=== PATIENT | female | born 1990 | race Caucasian/White ===

== ENCOUNTER → 2016-03-04 | Outpatient (CLI) | payer BC ==
--- NOTE | 2016-03-04 11:26 | REP ---
OBSTETRIC SONOGRAPHY: HISTORY: Supervision of for anatomy. FINDINGS: Scanning through the gravid uterus demonstrates a viable single intrauterine gestation in a cephalic lie. motion is observed and heart rate is recorder 153 beats per minute. Closed cervical length is 3.5 cm measured transabdominally. Amniotic fluid is subjectively normal. A posterior grade 0 placenta is seen without evidence of previa or abruption. No extrauterine abnormality is observed. The umbilical cord is seen draping across the shoulders. The following anatomic structures are identified and felt to be unremarkable: cranium, choroid plexus, cavum, cerebellum and posterior fossa, lungs, diaphragm, left-sided stomach, abdominal wall cord insertion, three-vessel umbilical cord, kidneys and bladder, spine, upper and lower extremities. Face and profile and four-chamber heart and outflow tract views are less than optimally seen due to position. An echogenic focus is seen in the left ventricle. BIOMETRY CHART: BPD 5.1 cm = 21 weeks 3 days HC 18.0 cm = 20 weeks 3 days AC 16.0 cm = 21 weeks 1 day FL 3.6 cm = 21 weeks 2 days HL 3.3 cm = 21 weeks 2 days HC/AC ratio normal 1.1 Cephalic index normal 0.8. Estimated weight 402 grams, 0 pounds 14 ounces, 47th percentile for 21 weeks 1 day. IMPRESSION: Viable single intrauterine gestation at 21 weeks 1 day by today's composite sonographic criteria. DESTINEE by today's sonography July 14, 2016. Face and profile, heart and outflow tract views less than optimally seen due to position. There is an echogenic focus in the left ventricle. Signed by Jef Mcdonald MD 03/04/2016 01:36 P
== END ==
LOC: M RAD 09:32
PROVIDERS: ATTEND Advanced Practice Midwife
DX: Z36 Encounter for antenatal screening of mother (principal)

== ENCOUNTER → 2016-03-19 | Outpatient (CLI) | payer BC ==
--- NOTE | 2016-03-20 06:27 | REP ---
Clinical: Anatomical evaluation. Comparison: 03/04/2016 . Findings: Examination demonstrates a single live intrauterine in breech presentation. motion is identified by technologist. Placenta is noted posterior fundally and grade zero without evidence for placenta previa or abruption. Amniotic fluid volume is normal. Cervix measures 3.3 cm in length and appears closed. No evidence for nuchal cord. Gestational age by first ultrasound 23 weeks 2 days with DESTINEE 07/14/2016 . Gestational age by current measurements 23 weeks 3 days with DESTINEE 07/13/2016 . FHR equals 153 beats per minute. Estimated weight 620 grams ( 58th percentile). Anatomical assessment demonstrates normal structures including cranium, choroid plexus, cavum, cerebellum/posterior fossa, facial features, lungs, four-chamber heart/ventricular outflow tracts, diaphragm, stomach, cord insertion/three-vessel cord, kidneys/bladder, spine, and extremities. Echogenic focus in the left cardiac ventricle suggesting prominent chordae tendineae is again identified and unchanged. Mild renal pelviectasis noted measuring up to 2.2 mm is within normal range for age. Impression: Single live intrauterine in breech presentation demonstrating appropriate interval growth. Mild renal pelviectasis within normal range. Prominent chordae tendineae. In conjunction with prior examination anatomical assessment is relatively complete and normal. Signed by Herb Wood MD 03/20/2016 06:19 A
== END ==
LOC: M RAD 12:25
PROVIDERS: ATTEND Obstetrics & Gynecology
DX: Z36 Encounter for antenatal screening of mother (principal)

== ENCOUNTER → 2016-04-10 | Outpatient (CLI) | payer BC ==
[2016-04-10 13:01] LABS: MEAN CORPUSCULAR HEMOGLOBIN 32.6 pg (27.0-33.0); RED CELL DISTRIBUTION WIDTH 12.8 % (11.5-14.5); WHITE BLOOD COUNT 13.3 K/mm3 (4.0-10.0)
== END ==
LOC: M SMT 09:53
PROVIDERS: ATTEND Obstetrics & Gynecology
DX: Z34.82 Encounter for supervision of other normal pregnancy, second trimester (principal)

== ENCOUNTER → 2016-06-20 | Outpatient (REF) | payer BC | LOC: M LAB REF 13:00 | PROVIDERS: ATTEND Advanced Practice Midwife | DX: Z34.83 Encounter for supervision of other normal pregnancy, third trimester (principal) ==

== ENCOUNTER 2016-07-18 08:20 | Inpatient (IN) | payer BC ==
[~2016-07-18] VITALS: Ht 170.2 cm; Wt 90.0 kg
[2016-07-18] VITALS (18 sets, daily range): BP systolic 111–135; BP diastolic 60–78
[2016-07-18] MEDS ORDERED: PRENTAB9 PO (08:29)
[2016-07-18] MEDS ORDERED: PENICILLIN G POTASSIUM IV 5 MU in D5W MINI-BAG PLUS 100 ML IV STA (09:07)
[2016-07-18 10:12] LABS: MEAN CORPUSCULAR HEMOGLOBIN 31.2 pg (27.0-33.0); MEAN CORPUSCULAR HGB CONC 34.1 g/dl (32.0-36.5); MEAN CORPUSCULAR VOLUME 91.8 fl (80.0-96.0); RED CELL DISTRIBUTION WIDTH 12.8 % (11.5-14.5); WHITE BLOOD COUNT 14.2 K/mm3 (4.0-10.0)
[2016-07-18] MEDS ORDERED: TUMS500C PO (10:58)
[2016-07-18] MEDS ORDERED: FENTANYL 2MCG/ML ROPIVACAINE 0.2% IN 0.9% NACL 200ML IVBAG As Ordered ONE (11:03)
[2016-07-18] MEDS ORDERED: NALOXONE INJ 0.4 MG/1 ML VIAL (J2310) IV PRN (12:30)
[2016-07-18] MEDS ORDERED: EPIDURAL COMMENT XX SCH (12:30)
[2016-07-18] MEDS ORDERED: LACTATED RINGER'S 1000 ML IV PRN (12:30)
[2016-07-18] MEDS ORDERED: diphenhydrAMINE INJ 50MG/ML VIAL (J1200) IV PRN (12:30)
[2016-07-18] MEDS ORDERED: ONDANSETRON 4MG/2ML VIAL (J2405) IV PRN (12:30)
[2016-07-18] MEDS ORDERED: EPIDURAL/PCA KEYS XX PRN (12:30)
[2016-07-18] MEDS ORDERED: FENTANYL/ROPIVACAINE/NACL BAG 200 ML EPIDURAL SCH (12:30)
[2016-07-18] MEDS ORDERED: REFRIGERATOR IV KEYS XX PRN (12:30)
--- NOTE | 2016-07-18 13:39 | HPE ---
DATE OF ADMISSION: 07/18/2016 HISTORY: 26-year-old 1, para 0 female at 40-1/7 weeks gestation by 7 week ultrasound, estimated date of confinement (EDC) of 07/17/2016, presents for regular contractions every 3-4 minutes for the last several hours. A small amount of vaginal bleeding. Contractions increased intensity. COURSE: The patient initiated care at 14 weeks gestation. Her blood pressure is 110/68, weight 149 pounds. course was unremarkable. MEDICAL HISTORY: Mild asthma. SURGICAL HISTORY: Knee surgery. ALLERGIES: 1. SULFA. SOCIAL HISTORY: The patient is . She denies, cigarettes, alcohol or drug use. FAMILY HISTORY: Noncontributory. PHYSICAL EXAMINATION: Blood pressure 128/78. She appears uncomfortable. Head and neck exam normal. Lungs clear. Heart regular rate and rhythm. Abdomen nontender and gravid. heart tone category 1. Contractions every 3-4 minutes. Sterile vaginal exam 3 cm, 100% effaced, -2 station, vertex intact. Extremities nontender. LABORATORIES: Blood type is O negative. Rubella immune. RPR nonreactive. Hepatitis B and C negative. Diabetes screen 81. Group B Streptococcus (GBS) positive on 06/20/2016. ASSESSMENT: 26-year-old G1 at 40-1/7 weeks gestation who presents in early labor. Patient was admitted on 07/18/2016. Patient will receive antibiotics for GBS prophylaxis.
[2016-07-18] MEDS: PENICILLIN G POTASSIUM IV 2.5 MU in D5W 100 ML IV SCH ×3 (13:44→21:45)
[2016-07-18] MEDS ORDERED: OXYTOCIN DRIP 30 UNITS in APPROPRIATE DILUENT 1 EA IV SCH (16:00)
[2016-07-18] MEDS: ePHEDrine SULFATE 25 MG/5 ML(5MG/ML) SYRINGE IV PRN ×3 (17:08→17:32)
[2016-07-18] MEDS ORDERED: RHOGAM 300 MCG (1500 IU) INJ (J2790) IM SCH (23:00)
[2016-07-18] MEDS ORDERED: MEASLES,MUMPS,RUBELLA VACCINE INJ (MMR-II) (90707) SC SCH (23:00)
[2016-07-18] MEDS ORDERED: OXYTOCIN DRIP 30 UNITS in APPROPRIATE DILUENT 1 EA IV ONE (23:00)
[2016-07-18] MEDS ORDERED: METHYLERGONOVINE MALEATE 0.2 MG TAB PO PRN (23:00)
[2016-07-18] MEDS ORDERED: ACETAMINOPHEN 500 MG TAB PO PRN (23:00)
[2016-07-18] MEDS ORDERED: DIBUCAINE 1% OINTMENT 30GM TOP PRN (23:00)
[2016-07-18] MEDS: IBUPROFEN 800 MG TAB PO PRN (23:39)
[2016-07-19 01:16] VITALS: BP 124/71
--- NOTE | 2016-07-19 02:09 | DN ---
DATE OF DELIVERY: 07/18/2016 PREDELIVERY DIAGNOSIS: 40 weeks gestation in labor. POSTDELIVERY DIAGNOSIS: Delivered. PROCEDURE: Spontaneous vaginal delivery. DITCH TENDER: Kaushik Lopez MD. ANESTHESIA: Epidural. ESTIMATED BLOOD LOSS: 300 mL. FINDINGS: 8 pound 12 ounce male infant, scores 8 and 9. DELIVERY SUMMARY: After a 30-minute second stage, the patient spontaneously delivered an 8 pound 12 ounce male infant, scores 8 and 9, under epidural anesthesia. There was no nuchal cord. The shoulders delivered with ease. The cried spontaneously and was handed to the mother. The cord was doubly clamped and cut. The placenta delivered spontaneously and appeared to be intact. A third-degree perineal laceration was repaired with 2-0 chromic in the usual fashion. Rectal exam was normal at the end of the procedure. There was no evidence of rectal involvement. Sponge, needle counts were correct. The patient received intravenous (IV) Pitocin after delivery of placenta.
[2016-07-19 06:02] VITALS: BP 129/74
[2016-07-19] MEDS: DOCUSATE SODIUM 100 MG CAP PO SCH ×2 (07:53→20:17)
[2016-07-19] MEDS: PRENATAL VITAMIN TAB PO SCH (07:55)
[2016-07-19] MEDS: IBUPROFEN 800 MG TAB PO PRN (14:41)
[2016-07-19 18:27] VITALS: BP 117/56
[2016-07-20 05:25] VITALS: BP 124/67
[2016-07-20] MEDS: DOCUSATE SODIUM 100 MG CAP PO SCH (08:43)
[2016-07-20] MEDS: PRENATAL VITAMIN TAB PO SCH (08:43)
[2016-07-20] MEDS ORDERED: IBUP-1114 PO (10:24)
[2016-07-20] MEDS ORDERED: COLA100C3 PO (10:24)
[2016-07-20] MEDS ORDERED: ACET50TA PO (10:24)
[2016-07-20] MEDS ORDERED: PRENTAB9 PO (10:24)
== END 2016-07-20 10:45 | disposition home or self-care (01) | DRG 542 ==
LOC: M LDO 08:20 → M LDI 09:06 → M OBS 07-19 01:12
PROVIDERS: ADMIT Specialist; ATTEND Specialist
PROC: 10E0XZZ Delivery of Products of Conception, External Approach (ICD-10-PCS; principal; 2016-07-18)
PROC: 0DQR0ZZ Repair Anal Sphincter, Open Approach (ICD-10-PCS; 2016-07-18)
DX: O48.0 Post-term pregnancy (principal); O70.20 Third degree perineal laceration during delivery, unspecified; Z37.0 Single live birth; Z3A.40 40 weeks gestation of pregnancy; Z88.2 Allergy status to sulfonamides

== ENCOUNTER → 2016-12-30 | Outpatient (REF) | payer BC ==
[~2016-12-30] MED LIST: ACET50TA PO; COLA100C5 PO; IBUP-1114 PO; PRENTAB9 PO; TUMS500C PO
== END ==
LOC: M SFHCPLAZ 13:43
PROVIDERS: ATTEND Family Medicine
DX: F53 Mental and behavioral disorders associated with the puerperium, not elsewhere classified (principal)

== ENCOUNTER → 2017-06-19 | Outpatient (REF) | payer BC ==
[2017-06-20 12:37] LABS: APPEARANCE, URINE HAZY (CLEAR); BACTERIA, URINE AUTO NEGATIVE (NEGATIVE); BILIRUBIN, URINE AUTO NEGATIVE (NEGATIVE); BLOOD, URINE BLOOD NEGATIVE (NEGATIVE); COLOR, URINE YELLOW (YELLOW); GLUCOSE, URINE (UA) AUTO NEGATIVE (NEGATIVE); KETONE, URINE AUTO NEGATIVE (NEGATIVE); LEUKOCYTE ESTERASE, URINE AUTO 1+ (NEGATIVE); MUCUS, URINE SMALL (NEGATIVE); NITRITE, URINE AUTO NEGATIVE (NEGATIVE); PROTEIN, URINE AUTO NEGATIVE (NEGATIVE); RBC, URINE AUTO 0 /HPF (0-3); SPECIFIC GRAVITY URINE AUTO 1.013 (1.002-1.035); SQUAMOUS EPITHELIAL CELL UR AU 3 /HPF (0-6); UROBILINOGEN, URINE AUTO 0.2 mg/dL (0.0-2.0); WBC, URINE AUTO 2 /HPF (0-3)
== END ==
LOC: M SFHCPLAZ 11:39
DX: R35.0 Frequency of micturition (principal)
CPT/HCPCS: 81001

== ENCOUNTER → 2017-07-30 | Outpatient (REF) | payer BC | LOC: M LAB REF 13:11 | DX: Z12.4 Encounter for screening for malignant neoplasm of cervix (principal) | CPT/HCPCS: G0123 ==

== ENCOUNTER → 2017-09-25 | Outpatient (CLI) | payer BC ==
[2017-09-25 13:51] LABS: BASO % 0.3 % (0.0-1.0); EOS # 0.2 10^3/uL (0.0-0.50); EOS % 1.8 % (0.0-3.0); HEMATOCRIT 38.6 % (36.0-47.0); HEMOGLOBIN 13.1 g/dl (12.0-15.5); IMMATURE GRANULOCYTE % 0.4 % (0-3.0); LYMPH # 1.5 10^3/uL (1.5-6.5); LYMPH % 17.2 % (24.0-44.0); MEAN CORPUSCULAR HEMOGLOBIN 31.4 pg (27.0-33.0); MEAN CORPUSCULAR HGB CONC 33.9 g/dl (32.0-36.5); MEAN CORPUSCULAR VOLUME 92.6 fl (80.0-96.0); MONO # 0.5 10^3/uL (0.0-0.8); MONO % 5.3 % (0.0-5.0); NEUTROPHILS # 6.7 10^3/uL (1.8-7.7); PLATELET COUNT, AUTOMATED 271 10^3/uL (150-450); RED BLOOD COUNT 4.17 10^6/uL (4.00-5.40); RED CELL DISTRIBUTION WIDTH 12.9 % (11.5-14.5); WHITE BLOOD COUNT 8.9 10^3/uL (4.0-10.0)
[2017-09-25 14:47] LABS: FREE T4 1.24 NG/DL (0.76-1.46); THYROID STIMULATING HORMONE 0.637 uIU/ML (0.358-3.740)
[2017-09-25 16:03] LABS: CHLAMYDIA DNA AMPLIFICATION NEGATIVE (NEGATIVE); GC DNA AMPLIFICATION NEGATIVE (NEGATIVE)
[2017-09-26 10:24] LABS: RUBELLA IgG QUALITATIVE IMMUNE (IMMUNE)
[2017-09-26 10:42] LABS: HBsAg Prenatal NEGATIVE (NEGATIVE)
[2017-09-26 10:55] LABS: HEPATITIS C VIRUS ABY INDEX 0.1 INDEX (<0.8)
[2017-09-26 10:56] LABS: HIV 1&2 SCREEN CENTAUR NEGATIVE (NEGATIVE)
== END ==
LOC: M SMT 09:21
DX: Z34.81 Encounter for supervision of other normal pregnancy, first trimester (principal); Z3A.09 9 weeks gestation of pregnancy
CPT/HCPCS: 84443

== ENCOUNTER → 2017-11-24 | Outpatient (CLI) | payer BC | LOC: M RAD 15:30 | DX: Z34.82 Encounter for supervision of other normal pregnancy, second trimester (principal); Z36.89 Encounter for other specified antenatal screening; Z3A.18 18 weeks gestation of pregnancy | CPT/HCPCS: 76811 ==

== ENCOUNTER → 2017-12-19 | Outpatient (CLI) | payer BC | LOC: M RAD 10:10 | DX: Z34.82 Encounter for supervision of other normal pregnancy, second trimester (principal); Z36.89 Encounter for other specified antenatal screening; Z3A.22 22 weeks gestation of pregnancy | CPT/HCPCS: 76816 ==

== ENCOUNTER → 2018-01-27 | Outpatient (CLI) | payer BC ==
[~2018-01-27] MED LIST changes: -ACET50TA PO; +MAPA500T17 PO
[2018-01-27 14:11] LABS: BASO % 0.2 % (0.0-1.0); EOS # 0.4 10^3/uL (0.0-0.50); EOS % 2.9 % (0.0-3.0); HEMATOCRIT 32.1 % (36.0-47.0); HEMOGLOBIN 10.6 g/dl (12.0-15.5); LYMPH # 1.5 10^3/uL (1.5-6.5); LYMPH % 12.2 % (24.0-44.0); MEAN CORPUSCULAR HEMOGLOBIN 31.3 pg (27.0-33.0); MEAN CORPUSCULAR VOLUME 94.7 fl (80.0-96.0); MONO # 0.6 10^3/uL (0.0-0.8); MONO % 5.1 % (0.0-5.0); NEUTROPHILS # 9.7 10^3/uL (1.8-7.7); NEUTROPHILS % 78.9 % (36.0-66.0); PLATELET COUNT, AUTOMATED 264 10^3/uL (150-450); RED BLOOD COUNT 3.39 10^6/uL (4.00-5.40); WHITE BLOOD COUNT 12.2 10^3/uL (4.0-10.0)
== END ==
LOC: M SMT 08:58
PROVIDERS: ATTEND Advanced Practice Midwife
DX: Z34.82 Encounter for supervision of other normal pregnancy, second trimester (principal); Z36.89 Encounter for other specified antenatal screening
CPT/HCPCS: 36415; 82950; 85025; 86850; 86900; 86901; J2790

== ENCOUNTER → 2018-03-16 | Outpatient (CLI) | payer BC ==
[~2018-03-16] MED LIST changes: -MAPA500T17 PO; +MAPA500T2 PO
--- NOTE | 2018-03-16 15:16 | REP ---
Clinical: Anatomical evaluation. Comparison: 12/19/2017 . Findings: Examination demonstrates a single live intrauterine in breech presentation. motion is identified by technologist. Placenta is noted fundal and grade grade II without evidence for placenta previa or abruption. Amniotic fluid volume is normal. Cervix measures 3.4 cm in length and appears closed. No evidence for nuchal cord. Gestational age by LMP 34 weeks 0 days with DESTINEE 04/27/2018 . Gestational age by current measurements 34 weeks 2 days with DESTINEE 04/25/2018 . FHR equals 163 beats per minute. Estimated weight 2419 grams ( 53rd percentile). Amniotic fluid index: 18.3 cm (8.1 - 24.8) Umbilical cord SD ratio: 2.81 (2.00 - 3.00). The examination demonstrates severe left renal hydronephrosis and proximal hydroureter along with mild/moderate right hydronephrosis. Left-sided hydronephrosis can be followed to the bladder where a small left-sided ureterocele is suggested. The bladder itself otherwise appears normal and demonstrates satisfactory emptying. Impression: 1. Single live intrauterine in breech presentation demonstrating appropriate interval growth. 2. Severe left-sided hydronephrosis and hydroureter with possible ureterocele at the bladder. Right-sided pelviectasis/mild hydronephrosis also suggested. Followup ultrasound examination is warranted. Electronically Signed by Herb Wood MD 03/16/2018 03:09 P
== END ==
LOC: M RAD 11:10
PROVIDERS: ATTEND Advanced Practice Midwife
DX: O36.8930 Maternal care for other specified fetal problems, third trimester, not applicable or unspecified (principal); O32.1XX0 Maternal care for breech presentation, not applicable or unspecified; Z3A.34 34 weeks gestation of pregnancy

== ENCOUNTER → 2018-04-02 | Outpatient (REF) | payer BC | LOC: M LAB REF 13:06 | PROVIDERS: ATTEND Advanced Practice Midwife | DX: Z34.83 Encounter for supervision of other normal pregnancy, third trimester (principal) ==

== ENCOUNTER 2018-04-20 06:12 | Inpatient (IN) | payer BC ==
[2018-04-20] VITALS (31 sets, daily range): BP systolic 115–141; BP diastolic 60–84
[~2018-04-20] VITALS: Ht 170.2 cm; Wt 88.9 kg
[2018-04-20 07:06] LABS: HEMATOCRIT 30.8 % (36.0-47.0); HEMOGLOBIN 9.6 g/dl (12.0-15.5); MEAN CORPUSCULAR HEMOGLOBIN 27.3 pg (27.0-33.0); MEAN CORPUSCULAR HGB CONC 31.2 g/dl (32.0-36.5); MEAN CORPUSCULAR VOLUME 87.5 fl (80.0-96.0); PLATELET COUNT, AUTOMATED 264 10^3/uL (150-450); RED BLOOD COUNT 3.52 10^6/uL (4.00-5.40); WHITE BLOOD COUNT 11.6 10^3/uL (4.0-10.0)
[2018-04-20] MEDS ORDERED: miSOPROStol 50 MCG 1/2 TAB (S0191) PO ONE (08:15)
[2018-04-20] MEDS ORDERED: LR 1,000 ML IV SCH (13:06)
[2018-04-20] MEDS ORDERED: OXYTOCIN DRIP 30 UNITS in APPROPRIATE DILUENT 1 EA IV SCH ×2 (13:15→18:09)
--- NOTE | 2018-04-20 14:25 | HPEPDOC ---
Obstetrical History & Physical General Date of Admission Apr 20, 2018 at 06:12 Primary Care Physician: VENITA SANTIAGO CNM History of Present Illness Patient is a 28-year-old female who is a at 39 weeks gestation with an DESTINEE of 04/27/18 based off of a 1st trimester ultrasound. Her has been c omplicated by a ultrasound showing severe left renal hydronephrosis and proximal hydroureter along with mild/moderate right sided pelviectasis with mild hydronephrosis. The PNC and Dr. Yadav along with Dr. Hook have been consulted during this . She presents to L&D for an IOL. She denies vaginal bleeding, leaking of fluid, or contractions. She reports active movement. Chief Complaint: Other (induction of labor) Information Provided By: Patient Age: 28 : 2 Term: 1 Pre-term: 0 Abortions: 0 Livin Care Care: Good Care Dating Final EDC: Apr 27, 2018 Final EDC by: 1st trimester (US) LMP: July 12, 2017 EGA at Admission: 39.0 Antepartum Course Height (inches): 67 Pre- weight (lbs.): 151 Admission Weight (lbs.): 196 Change in Weight (lbs.): 45 Past Medical History Past Obstetrical History : Past Obstetrical History: Primgravida Gestation: 40.1 Type of Delivery: Spontaneous Vaginal Del. (July 2016) Sex of : Male (weighting 8 lbs 12 oz) Complications: No MORNING SHOW HOST History: No pertinent history Past Medical History Medical History Asthma Surgical History: Other (ACL repair) Family History Significant Family History: Cancer (skin), Other (stroke) Social History Marital Status: Family situation: Spouse/partner home Psychosocial History: Depression () * Smoker: non-smoker Alcohol: Denies Drugs: denies Abuse Violence Screening Have you been hit/kicked/slapp: No Have you been sexually assault: No Imunizations Tdap status: current Influenza Status: current Allergies Coded Allergies: Sulfa Antibiotics (Unverified Allergy, Unknown, PT STATES A BABY UNCERTAIN THE REACTION, 07/18/16) Medications Scheduled Multivitamins/ ( 27-0.8 mg) 1 Tab Tab, 1 TAB PO DAILY Scheduled PRN Calcium Carbonate (Tums) 500 Mg Chw, 1,000 MG PO PRN PRN for HEARTBURN Physical Examination Physical Examination GENERAL: Alert and oriented times three. BREAST: . ABDOMEN: Gravid and non-tender to touch. FETUS: Is vertex (VTX) by sterile vaginal examination (SVE), fetus is vertex (VTX) by Cliff. HEART RATE: Regular rate and rhythm. LUNGS: Clear to auscultation (CTA). EXTREMITIES: No edema. No clonus. Deep tendon reflexes (DTRs) + 2. Vital Signs/I&O Vital Signs Date Time Temp Pulse Resp B/P (MAP) Pulse Ox O2 Delivery O2 Flow Rate FiO2 04/20/18 07:44 100 16 117/71 (86) 04/20/18 06:27 97.7 Laboratory Data 24H LABS Laboratory Tests 2 04/20/18 06:19: Serology Scanned Report Hepatitis B Testing 04/20/18 06:56: Nucleated Red Blood Cells % (auto) 0.2H, Syphilis Serology NONREACTIVE CBC/BMP Laboratory Tests 04/20/18 06:56 Red Blood Count 3.52 L, Mean Corpuscular Volume 87.5, Mean Corpuscular Hemoglobin 27.3, Mean Corpuscular Hemoglobin Concent 31.2 L, Red Cell Distribution Width 13.6 Urine Culture: No Growth Pertinent Laboratoy Data Blood Type: O- RBC Antibody Screen: Negative HIV: Negative Hepatitis B: Negative Rapid Plasma Reagin: Nonreactive Rubella: Immune Chlamydia/Gonorrhea: Negative Group B Streptococcus: Negative Glucose Tolerance Test: 102 Anatomy Ultrasound Ultrasound Date: Mar 16, 2018 Placenta Location: Posterior Normal Anatomy: No (severe left renal hydronephrosis; left sided milkd hydronephrosis with small left sided ureterocele) Placenta Previa: No Estimated Weight (grams): 2419 Vaginal Examination Dilation: 2cm Effacement: 50% Station: -2 Cervical Consistency: Soft Cervical Position: Posterior Presentation: Cephalic presentation Position: Four quadrants Assessment Heart Rate (FHR): 150 Variability: Moderate Accelerations: Positive Decelerations: None Tocometer Contractions: Yes Frequency: other (occasional) Multi-drug resistant Organism: No history of MDRO Assessment/Plan Assessment IUP at 39 weeks gestation GBS negative Category I FHR tracing induction of labor Plan Admit to L&D. OOB ad art. Diet: regular. Group B Streptococcus (GBS) negative. Labs and intravenous (IV) per unit protocol. Counseled on Cytotec and IV Pitocin induction of labor. Anticipate cervical ripening and cervical change. Anesthesia consult per patient's request. Plan for peds to be notified once baby is born as a plan has already been in place with Dr. Yadav and Dr. Hook for a renal sono. VENITA SANTIAGO CNM Apr 20, 2018 14:25
[2018-04-20] MEDS ORDERED: FENTANYL 2MCG/ML ROPIVACAINE 0.2% IN 0.9% NACL 100ML IVBAG As Ordered ONE (14:48)
[2018-04-20] MEDS ORDERED: NALOXONE INJ 0.4 MG/1 ML VIAL (J2310) IV PRN (16:00)
[2018-04-20] MEDS ORDERED: LACTATED RINGER'S 1000 ML IV PRN (16:00)
[2018-04-20] MEDS ORDERED: EPIDURAL COMMENT XX SCH (16:00)
[2018-04-20] MEDS ORDERED: REFRIGERATOR IV KEYS XX PRN (16:00)
[2018-04-20] MEDS ORDERED: EPIDURAL/PCA KEYS XX PRN (16:00)
[2018-04-20] MEDS ORDERED: ONDANSETRON 4MG/2ML VIAL (J2405) IV PRN (16:00)
[2018-04-20] MEDS ORDERED: ePHEDrine SULFATE 25 MG/5 ML(5MG/ML) SYRINGE IV PRN (16:00)
[2018-04-20] MEDS ORDERED: diphenhydrAMINE INJ 50MG/ML VIAL (J1200) IV PRN (16:00)
[2018-04-20] MEDS ORDERED: FENTANYL/ROPIVACAINE/NACL BAG 100 ML EPIDURAL SCH (16:00)
--- NOTE | 2018-04-20 17:48 | DNPDOC ---
[facility] Delivery Note Delivery Note DATE OF DELIVERY: 04/20/2018 at 1630 PREDELIVERY DIAGNOSIS: 39-0/7 weeks' gestation and labor. POST DELIVERY DIAGNOSIS: Delivered. PROCEDURE: Spontaneous vaginal delivery. BIOCHEMIST: Venita Sanchez CNM, MERARI ANESTHESIA: epidural. ESTIMATED BLOOD LOSS: 250 mL. FINDINGS: 8 pounds 11 ounces; 3930 grams; female , Score 8/9, right compound hand. DELIVERY SUMMARY: Patient is a 28-year-old female who is now a at 39 w eeks gestation who presented to L&D for an IOL. She received 1 dose of cytotec, an epidural for pain management, and IV Pitocin (6 cc). She progressed to fully dilated at 1626 and pushed to a vaginal delivery in the OA position with restitution to ROT. A right compound hand was noted with delivery of head. The anterior shoulder delivered with ease and the corpus immediately followed. The baby was placed [id number] on the maternal abdomen and was active and crying. The cord was clamped x2 after pulsation ceased and cut by the FOB. The placenta delivered spontaneously and intact at 1636. The perineum and vagina were inspected and found to have a 2nd degree perineal laceration that was repaired with a 3.[address]-1. The mom plans to bottle feed her . They are naming her Pedro. Both mom and baby are in stable condition. VENITA SANCHEZ CNM Apr 20, 2018 17:48
[2018-04-20] MEDS ORDERED: METHYLERGONOVINE MALEATE 0.2 MG TAB PO PRN (18:15)
[2018-04-20] MEDS ORDERED: ACETAMINOPHEN 500 MG TAB PO PRN (18:15)
[2018-04-20] MEDS ORDERED: MEASLES,MUMPS,RUBELLA VACCINE INJ (MMR-II) (90707) SC SCH (18:15)
[2018-04-20] MEDS ORDERED: DIBUCAINE 1% OINTMENT 30GM TOP PRN (18:15)
[2018-04-20] MEDS ORDERED: RHOGAM 300 MCG (1500 IU) INJ (J2790) IM SCH (18:15)
[2018-04-20] MEDS ORDERED: ANUSOL HC CREAM 30GM TOP PRN (18:15)
[2018-04-20] MEDS: IBUPROFEN 800 MG TAB PO PRN (23:25)
[2018-04-21 06:09] VITALS: BP 108/57
[2018-04-21] MEDS: IBUPROFEN 800 MG TAB PO PRN (08:35)
[2018-04-21] MEDS: PRENATAL VITAMINS CHEWABLE TABLET PO SCH (08:35)
[2018-04-21] MEDS: DOCUSATE SODIUM 100 MG CAP PO PRN (14:29)
[2018-04-21 17:59] VITALS: BP 128/66
--- NOTE | 2018-04-22 06:26 | NUR ---
Day 2 Status post , uncomplicated Subjective Pain is well controlled. Lochia decreasing and minimal. Voiding spontaneously. Tolerating a regular diet. Ambulating without any assistance. Denies any subjective fever/chills/nausea/vomiting/headache/visual changes/shortness of breath/chest pain. Formula feeding. Objective Vitals: Normotensive, normal heart rate, afebrile, adequate urine output. Heart: regular, rate, and rhythm. no murmurs/gallops/rubs Lungs: clear to auscultation bilaterally, no wheezes/crackles/rales/ronchi Abd: soft, nontender, nondistended, uterine fundus is 2cm below umbilicus and firm Ext: no significant edema, nontender, negative Edenilson's bilaterally. Assessment/Plan: day 2. Recovering well. Hemodynamically stable, afebrile, good pain control. -Routine care -Discharge to home today. -Routine infectious, fever, pain, and bleeding precautions reviewed [place] Person.O., F.A.C.O.G.
[2018-04-22 06:46] VITALS: BP 117/67
[2018-04-22] MEDS: PRENATAL VITAMINS CHEWABLE TABLET PO SCH (08:37)
[2018-04-22] MEDS ORDERED: IBUP-1114 PO (08:38)
[2018-04-22] MEDS ORDERED: MAPA500T2 PO (08:38)
[2018-04-22] MEDS: DOCUSATE SODIUM 100 MG CAP PO PRN (10:29)
== END 2018-04-22 14:35 | disposition home or self-care (01) | DRG 560 ==
LOC: M LDI 06:12 → M OBS 21:20
PROVIDERS: ADMIT Obstetrics & Gynecology; ATTEND Obstetrics & Gynecology
PROC: 10E0XZZ Delivery of Products of Conception, External Approach (ICD-10-PCS; principal; 2018-04-20)
PROC: 0HQ9XZZ Repair Perineum Skin, External Approach (ICD-10-PCS; 2018-04-20)
PROC: 3E0DXGC Introduction of Other Therapeutic Substance into Mouth and Pharynx, External Approach (ICD-10-PCS; 2018-04-20)
DX: O32.6XX0 Maternal care for compound presentation, not applicable or unspecified (principal); O36.8990 Maternal care for other specified fetal problems, unspecified trimester, not applicable or unspecified; Z37.0 Single live birth; Z3A.39 39 weeks gestation of pregnancy; O70.1 Second degree perineal laceration during delivery

== ENCOUNTER → 2019-08-10 | Outpatient (REF) | payer BC ==
[2019-08-10 14:05] LABS: BASO % 0.4 % (0.0-1.0); EOS # 0.3 10^3/uL (0.0-0.5); EOS % 6.3 % (0.0-3.0); HEMATOCRIT 41.2 % (36.0-47.0); HEMOGLOBIN 13.7 g/dl (12.0-15.5); LYMPH # 1.6 10^3/uL (1.5-5.0); LYMPH % 35.5 % (24.0-44.0); MEAN CORPUSCULAR HEMOGLOBIN 31.1 pg (27.0-33.0); MEAN CORPUSCULAR HGB CONC 33.3 g/dl (32.0-36.5); MEAN CORPUSCULAR VOLUME 93.4 fl (80.0-96.0); MONO # 0.3 10^3/uL (0.0-0.8); MONO % 7.4 % (0.0-5.0); NEUTROPHILS # 2.3 10^3/uL (1.5-8.5); NEUTROPHILS % 50.2 % (36.0-66.0); PLATELET COUNT, AUTOMATED 223 10^3/uL (150-450); RED BLOOD COUNT 4.41 10^6/uL (4.00-5.40); WHITE BLOOD COUNT 4.6 10^3/uL (4.0-10.0)
[2019-08-10 14:25] LABS: ALBUMIN 4.3 GM/DL (3.2-5.2); ALT/SGPT 20 U/L (12-78); BILIRUBIN,TOTAL 0.9 MG/DL (0.2-1.0); BLOOD UREA NITROGEN 11 MG/DL (7-18); CALCIUM LEVEL 9.5 MG/DL (8.5-10.1); CARBON DIOXIDE LEVEL 27 MEQ/L (21-32); CHLORIDE LEVEL 105 MEQ/L (98-107); CHOLESTEROL LEVEL 165 MG/DL (<200); CREATININE FOR GFR 0.82 MG/DL (0.55-1.30); FREE T4 1.11 NG/DL (0.76-1.46); GLOMERULAR FILTRATION RATE > 60.0 (>60); GLUCOSE, FASTING 76 MG/DL (70-100); HDL CHOLESTEROL 60 MG/DL (>40); LDL CHOLESTEROL 94 MG/DL (<100); NON-HDL-C 105 MG/DL; POTASSIUM SERUM 4.3 MEQ/L (3.5-5.1); SODIUM LEVEL 138 MEQ/L (136-145); THYROID STIMULATING HORMONE 0.717 uIU/ML (0.358-3.740); TRIGLYCERIDES LEVEL 56 MG/DL (<150)
== END ==
LOC: M SFHCPLAZ 09:56
PROVIDERS: ATTEND Physician Assistant Medical
DX: F41.9 Anxiety disorder, unspecified (principal); Z13.220 Encounter for screening for lipoid disorders; J45.30 Mild persistent asthma, uncomplicated

== ENCOUNTER → 2019-09-07 | Outpatient (REF) | payer BC ==
[2019-09-07 13:35] LABS: FREE T4 0.99 NG/DL (0.76-1.46); THYROID STIMULATING HORMONE 0.557 uIU/ML (0.358-3.740)
== END ==
LOC: M SFHCPLAZ 09:59
PROVIDERS: ATTEND Physician Assistant Medical
DX: F41.9 Anxiety disorder, unspecified (principal)

== ENCOUNTER → 2020-01-11 | Outpatient (CLI) | payer BC ==
--- NOTE | 2020-01-11 12:35 | REPPI ---
INDICATION: M25.531 ARTHRALGIA OF RIGHT WRIST COMPARISON: None. TECHNIQUE: AP, lateral, bilateral oblique views right wrist. FINDINGS: The carpal bones, surrounding osseous structures, soft tissues, and joint spaces are normal. There is no evidence for acute fracture or dislocation. No subcutaneous emphysema or radiodense foreign body. IMPRESSION: Normal age-appropriate right wrist series. No overt arthritic changes appreciated. <Electronically signed by Herb Wood > 01/11/20 [id number]
== END ==
LOC: M PLAIMG 10:59
PROVIDERS: ATTEND Physician Assistant Medical
DX: M25.531 Pain in right wrist (principal)

== ENCOUNTER → 2020-01-11 | Outpatient (REF) | payer BC ==
[2020-01-11 14:01] LABS: FREE T4 1.01 NG/DL (0.76-1.46); THYROID STIMULATING HORMONE 1.01 uIU/ML (0.358-3.740)
== END ==
LOC: M SFHCPLAZ 10:59
PROVIDERS: ATTEND Physician Assistant Medical
DX: F41.9 Anxiety disorder, unspecified (principal)

== ENCOUNTER → 2020-12-12 | Outpatient (REF) | payer BC | LOC: M SFHCWAGY 13:19 | PROVIDERS: ATTEND Advanced Practice Midwife | DX: Z12.4 Encounter for screening for malignant neoplasm of cervix (principal) | CPT/HCPCS: 87624; G0123 ==

== ENCOUNTER → 2021-02-12 | Outpatient (CLI) | payer BC ==
[~2021-02-12] MED LIST changes: +LEXA1TAB2; +MULT-90 PO; +OXYC1TAB23 PO
== END ==
LOC: M LABSMTC 11:40
PROVIDERS: ATTEND Anesthesiology
DX: Z01.818 Encounter for other preprocedural examination (principal); Z11.52 Encounter for screening for COVID-19

== ENCOUNTER 2021-02-14 11:52 | Day surgery (SDC) | payer BC ==
[~2021-02-14] VITALS: Ht 170.2 cm; Wt 70.3 kg
[~2021-02-14 11:52] MED LIST changes: +ACETAMINOPHEN 1000MG 100ML IV BTL (OFIRMEV) (J0131 PER 10MG) As Ordered ONE; +KETOROLAC 60MG 2ML VIAL As Ordered ONE; +LIDOCAINE 2% 100MG/5ML SDV (FOR ANES.) As Ordered ONE; +LIDOCAINE 2% JELLY 5ML TUBE As Ordered ONE; +LR 1,000 ML IV ONE; +MIDAZOLAM INJ 2MG/2ML VIAL (J2250 PER 1MG) As Ordered ONE; +ONDANSETRON 4MG/2ML VIAL As Ordered ONE; -OXYC1TAB23 PO; +ROCURONIUM BROMIDE 50 MG/5 ML VIAL As Ordered ONE; +SUGAMMADEX SODIUM 500 MG/5 ML VIAL (BRIDION) As Ordered ONE; +dexameTHASONE 4 MG/ML 1ML VIAL (J1100 PER 1MG) As Ordered ONE; +fentaNYL 100 MCG/2 ML INJECTION (J3010) As Ordered ONE; +propofoL 200 MG/20 ML VIAL As Ordered ONE
[2021-02-14] MEDS ORDERED: BUPIVACAINE HCL 0.25% 30ML VIAL As Ordered ONE (12:05)
[2021-02-14 12:31] LABS: HEMATOCRIT 39.8 % (36.0-47.0); HEMOGLOBIN 13.1 g/dl (12.0-15.5); MEAN CORPUSCULAR HEMOGLOBIN 31.5 pg (27.0-33.0); MEAN CORPUSCULAR HGB CONC 32.9 g/dl (32.0-36.5); MEAN CORPUSCULAR VOLUME 95.7 fl (80.0-96.0); PLATELET COUNT, AUTOMATED 212 10^3/uL (150-450); RED BLOOD COUNT 4.16 10^6/uL (4.00-5.40); WHITE BLOOD COUNT 6.7 10^3/uL (4.0-10.0)
[2021-02-14 12:52] LABS: HCG, SERUM QUALITATIVE NEGATIVE (NEGATIVE)
[2021-02-14] MEDS ORDERED: GLYCOPYRROLATE INJ 0.2 MG/ML 2 ML VIAL As Ordered ONE (13:31)
--- NOTE | 2021-02-14 13:53 | ROOPDOC ---
[facility] Report Of Operation Report of Operation Date of procedure: 02/14/2021 Preoperative diagnosis: Satisfied parity. Postoperative diagnosis: Same Procedure: Laparoscopic bilateral salpingectomy Anesthesia: Gen. endotracheal Estimated blood loss 5 mL IV fluids replaced 600 mL lactated Ringer's Drains: In and out catheter 100 mL of urine Complications: None Preoperative antibiotics: None indicated Specimens: Bilateral fallopian tubes Intraoperative findings: Normal size, shape, contour of the retroverted retroflexed uterus. Normal adnexa/ovaries bilaterally. Procedure: The patient was counseled and consented on the risks, benefits, indications, and alternatives of the procedure. Informed consent was obtained. She was taken to the operating room with an IV running. She was placed on the operating table in the dorsal supine position. Gen. anesthesia was administered and the airway was secured without any difficulty. A timeout was performed per protocol. She was prepared and draped in the normal sterile fashion. Attention was turned to the pelvis. The bladder was drained with in and out sterile catheter. A speculum was placed into the vagina with good visualization of the cervix. A single- tooth tenaculum was placed on the anterior lip of the cervix and downward traction was applied. The cervix was sequentially dilated with Vaughn dilators up to a #16. A ZUMI uterine manipulator was placed without any difficulty. The single-tooth tenaculum was removed. The tenaculum sites were noted to be hemostatic. A sterile glove switch was performed. Attention was turned to the abdomen. A 5mm umbilical incision was made with the 11 blade. Through this incision, a Veress needle was placed into the intraperitoneal cavity. Intraperitoneal placement was confirmed with ease of flow of normal saline, a positive drop test and no return on aspiration. The opening pressure was 2 mmHg. The abdomen was insufflated with 2 L of CO2. The Veress needle was removed. A 5 mm laparoscopic trocar was placed under direct visualization without any difficulty, and intraperitoneal placement was confirmed. No inciden zuly bleeding or injury was evident. The patient was placed in steep Trendelenburg. 2 additional laparoscopic port sites were placed through 5 mm incisions in the lower left quadrant. Each trocar/cannula was placed under direct visualization without any difficulty, incidental bleeding or injury. Attention was turned to the right fallopian tube. The right fallopian tube was followed out to the fimbriated end, grasped and elevated. The underlying mesosalpinx was sequentially clamped, coagulated and transected, until the level of the cornu was reached. At this level, the fallopian tube was clamped, coagulated and transected, thus amputating the fallopian tube. The fallopian tube was brought through the cannula without any difficulty and sent to patholo gy for permanent section. Attention was turned to the left fallopian tube. The left fallopian tube was followed out to the fimbriated end, grasped and elevated. The underlying mesosalpinx was sequentially clamped, coagulated and transected, until the level of the cornu was reached. At this level the fallopian tube was clamped, coagulated and transected, thus amputating the fallopian tube. The fallopian tube was brought to the cannula without any difficulty and sent to pathology for permanent section. Both right and left surgical sites were noted to be completely hemostatic. The gas was released from the abdomen. The patient was taken out of Trendelenburg position. The cannulas were removed. The skin incisions were closed with 4-0 Monocryl in subcuticular fashion and reinforced with Dermabond. The uterine manipulator was removed, the vagina was noted to be clear of any sponge or instrument. Sponge, needle and instrument counts were correct per protocol. The patient tolerated the entire procedure very well. She was transferred to the PACU in good and stable condition. DO LETTY Mccall JONATHAN R. DO Feb 14, 2021 13:53
[2021-02-14] MEDS ORDERED: OXYC1TAB23 PO (13:54)
[2021-02-14] MEDS ORDERED: fentaNYL 100 MCG/2 ML INJECTION (J3010) IV PRN (14:10)
[2021-02-14] MEDS ORDERED: oxyCODONE 5MG TAB PO PRN (14:10)
[2021-02-14] MEDS ORDERED: ONDANSETRON 4MG/2ML VIAL IV PRN (14:10)
[2021-02-14] MEDS ORDERED: LR 1,000 ML IV SCH ×2 (14:10)
[2021-02-14 15:04] VITALS: BP 95/53
== END 2021-02-14 15:07 | disposition home or self-care (01) ==
LOC: M SDC 11:52
PROVIDERS: ATTEND Obstetrics & Gynecology
DX: Z30.2 Encounter for sterilization (principal); F32.9 Major depressive disorder, single episode, unspecified; Z88.2 Allergy status to sulfonamides; J45.909 Unspecified asthma, uncomplicated; Z79.899 Other long term (current) drug therapy
CPT/HCPCS: 36415; 58661; 84703; 85027; 86850; 86900; 86901; 88302; J0131; J1100; J1885; J2250; J2405; J3010

== ENCOUNTER → 2021-09-24 | Outpatient (CLI) | payer OTHER ==
[~2021-09-24] MED LIST changes: -ACETAMINOPHEN 1000MG 100ML IV BTL (OFIRMEV) (J0131 PER 10MG) As Ordered ONE; -KETOROLAC 60MG 2ML VIAL As Ordered ONE; -LIDOCAINE 2% 100MG/5ML SDV (FOR ANES.) As Ordered ONE; -LIDOCAINE 2% JELLY 5ML TUBE As Ordered ONE; -LR 1,000 ML IV ONE; -MIDAZOLAM INJ 2MG/2ML VIAL (J2250 PER 1MG) As Ordered ONE; -ONDANSETRON 4MG/2ML VIAL As Ordered ONE; +OXYC1TAB23 PO; -ROCURONIUM BROMIDE 50 MG/5 ML VIAL As Ordered ONE; -SUGAMMADEX SODIUM 500 MG/5 ML VIAL (BRIDION) As Ordered ONE; -dexameTHASONE 4 MG/ML 1ML VIAL (J1100 PER 1MG) As Ordered ONE; -fentaNYL 100 MCG/2 ML INJECTION (J3010) As Ordered ONE; -propofoL 200 MG/20 ML VIAL As Ordered ONE
[2021-09-24 14:09] LABS: BASO % 0.6 % (0.0-1.0); EOS # 0.3 10^3/uL (0.0-0.5); EOS % 4.8 % (0.0-3.0); HEMATOCRIT 38.7 % (36.0-47.0); HEMOGLOBIN 12.6 g/dl (12.0-15.5); LYMPH # 1.5 10^3/uL (1.5-5.0); LYMPH % 28.1 % (24.0-44.0); MEAN CORPUSCULAR HGB CONC 32.6 g/dl (32.0-36.5); MEAN CORPUSCULAR VOLUME 95.1 fl (80.0-96.0); MONO # 0.4 10^3/uL (0.0-0.8); MONO % 7.5 % (2.0-8.0); NEUTROPHILS # 3.2 10^3/uL (1.5-8.5); NEUTROPHILS % 58.6 % (36.0-66.0); PLATELET COUNT, AUTOMATED 220 10^3/uL (150-450); RED BLOOD COUNT 4.07 10^6/uL (4.00-5.40); WHITE BLOOD COUNT 5.5 10^3/uL (4.0-10.0)
[2021-09-24 16:40] LABS: ALBUMIN 3.8 GM/DL (3.2-5.2); ALT/SGPT 21 U/L (12-78); BILIRUBIN,TOTAL 0.5 MG/DL (0.2-1.0); BLOOD UREA NITROGEN 12 MG/DL (7-18); CALCIUM LEVEL 9.3 MG/DL (8.5-10.1); CARBON DIOXIDE LEVEL 29 MEQ/L (21-32); CHLORIDE LEVEL 106 MEQ/L (98-107); CHOLESTEROL LEVEL 192 MG/DL (<200); CHOLESTEROL RISK RATIO 2.493 (<5); CREATININE FOR GFR 0.78 MG/DL (0.55-1.30); FREE T4 0.95 NG/DL (0.76-1.46); GLOMERULAR FILTRATION RATE > 60.0 (>60); GLUCOSE, FASTING 73 MG/DL (70-100); HDL CHOLESTEROL 77 MG/DL (>40); LDL CHOLESTEROL 103 MG/DL (<100); NON-HDL-C 115 MG/DL; POTASSIUM SERUM 4.2 MEQ/L (3.5-5.1); SODIUM LEVEL 140 MEQ/L (136-145); THYROID STIMULATING HORMONE 0.715 uIU/ML (0.358-3.740); TOTAL PROTEIN 7.4 GM/DL (6.4-8.2); TRIGLYCERIDES LEVEL 62 MG/DL (<150)
== END ==
LOC: M PLALAB 10:30
PROVIDERS: ATTEND Physician Assistant Medical
DX: Z00.00 Encounter for general adult medical examination without abnormal findings (principal)

== ENCOUNTER → 2022-12-19 | Outpatient (CLI) | payer OTHER ==
[2022-12-19 16:03] LABS: BASO % 0.6 % (0.0-1.0); EOS # 0.4 10^3/uL (0.0-0.5); EOS % 5.7 % (0.0-3.0); HEMOGLOBIN 13.4 g/dl (12.0-15.5); LYMPH # 1.4 10^3/uL (1.5-5.0); LYMPH % 19.8 % (24.0-44.0); MEAN CORPUSCULAR HEMOGLOBIN 32.4 pg (27.0-33.0); MEAN CORPUSCULAR HGB CONC 32.7 g/dl (32.0-36.5); MONO # 0.6 10^3/uL (0.0-0.8); MONO % 8.2 % (2.0-8.0); NEUTROPHILS # 4.6 10^3/uL (1.5-8.5); NEUTROPHILS % 65.6 % (36.0-66.0); PLATELET COUNT, AUTOMATED 267 10^3/uL (150-450); RED BLOOD COUNT 4.14 10^6/uL (4.00-5.40)
[2022-12-19 16:21] LABS: HEMOGLOBIN A1c 4.3 % (4.0-6.0)
[2022-12-19 16:32] LABS: ALBUMIN 4.1 G/DL (3.2-5.2); ALKALINE PHOSPHATASE 80 U/L (46-116); ALT/SGPT 27 U/L (7.0-40); AST/SGOT 29 U/L (<34); BILIRUBIN,TOTAL 0.4 MG/DL (0.3-1.2); BLOOD UREA NITROGEN 12 MG/DL (9-23); CALCIUM LEVEL 9.1 MG/DL (8.5-10.1); CARBON DIOXIDE LEVEL 27 MMOL/L (20-31); CHLORIDE LEVEL 106 MMOL/L (98-107); CHOLESTEROL LEVEL 217 MG/DL (<200); CHOLESTEROL RISK RATIO 2.71 (<5); CREATININE FOR GFR 0.84 MG/DL (0.55-1.30); GLOMERULAR FILTRATION RATE > 60.0 (>60); GLUCOSE, FASTING 80 MG/DL (60-100); LDL CHOLESTEROL 113.4 MG/DL (<100); POTASSIUM SERUM 4.3 MMOL/L (3.5-5.1); SODIUM LEVEL 142 MMOL/L (136-145); THYROID STIMULATING HORMONE 0.915 uIU/ML (0.55-4.78); TOTAL PROTEIN 7.7 G/DL (5.7-8.2); TRIGLYCERIDES LEVEL 118 MG/DL (<150)
[2022-12-19 16:53] LABS: FREE T4 1.03 NG/DL (0.89-1.76)
== END ==
LOC: M PLAIMG 13:21
PROVIDERS: ATTEND Physician Assistant Medical
DX: J45.30 Mild persistent asthma, uncomplicated (principal); F41.9 Anxiety disorder, unspecified; Z13.1 Encounter for screening for diabetes mellitus; Z13.220 Encounter for screening for lipoid disorders; J30.9 Allergic rhinitis, unspecified

== ENCOUNTER → 2023-02-24 | Outpatient (REF) | payer OTHER ==
[2023-02-24 17:42] LABS: PERCENT SATURATION 36.8 % (13.2-45.0)
[2023-02-24 17:45] LABS: FERRITIN 52.7 NG/ML (7.3-270.7)
== END ==
LOC: M LAB REF 16:28
PROVIDERS: ATTEND Internal Medicine
DX: D64.9 Anemia, unspecified (principal); Z82.49 Family history of ischemic heart disease and other diseases of the circulatory system

== ENCOUNTER → 2023-03-13 | Outpatient (CLI) | payer OTHER ==
[~2023-03-13] MED LIST changes: +METHACHOLINE KIT INH ONE
== END ==
LOC: M CARPUL 12:26
PROVIDERS: ATTEND Internal Medicine Pulmonary Disease
DX: R06.02 Shortness of breath (principal)
CPT/HCPCS: 94070; J7674

== ENCOUNTER → 2023-06-23 | Outpatient (CLI) | payer OTHER ==
[~2023-06-23] MED LIST changes: -METHACHOLINE KIT INH ONE
== END ==
LOC: M SLEEP HO 11:37
PROVIDERS: ATTEND Internal Medicine Pulmonary Disease
DX: R40.0 Somnolence (principal)

== ENCOUNTER → 2023-10-06 | Outpatient (REF) | payer OTHER ==
[2023-10-09 13:54] LABS: HPV APTIMA Not Detected (Not Detected)
== END ==
LOC: M SFHCWAGY 15:00
PROVIDERS: ATTEND Obstetrics & Gynecology
DX: Z12.4 Encounter for screening for malignant neoplasm of cervix (principal); Z77.9 Other contact with and (suspected) exposures hazardous to health
CPT/HCPCS: 87624; G0123